=== PATIENT | male | born 1970 | race Caucasian/White ===

== ENCOUNTER 2019-09-04 09:34 | Outpatient (CLI) | payer BC | END 2019-09-04 09:35 | disposition home or self-care (01) | LOC: COV 09:34 | PROVIDERS: ATTEND Family Medicine | DX: R05 Cough (principal); R06.02 Shortness of breath; R53.83 Other fatigue; R19.7 Diarrhea, unspecified; Z20.828 Contact with and (suspected) exposure to other viral communicable diseases ==

== ENCOUNTER 2020-07-28 22:24 | Emergency (ER) | payer BC, OTHER ==
[2020-07-28 22:40] VITALS: BP 117/72
--- OUTSIDE RECORDS SUMMARY | 2020-07-28 22:48 | EXTERNAL MEDICAL SUMMARY RPT | Continuity of Care Document ---
:1970 Demographics Phone Unavailable Preferred Language Unknown Marital Status Unknown Church Affiliation Unknown Race Unknown Ethnic Group Unknown Author Organization [facility] Address [address] [place] [address] Phone Allergies Encounters Medications Problems Results
--- NOTE | 2020-07-29 00:54 | ED Physician Documentation ---
History of Present Illness - Stated complaint Stated Complaint: SHIVERING,MUSCLE STIFFNESS - Chief complaint Chief Complaint: General - History obtained from History obtained from: Patient - History of Present Illness Timing: Enter time (1999), Today - Additonal information Additional information: 49-year-old male states that he was well earlier in the day and he developed sudden shaking chills which lasted about 1/2-hour. He had bad enough shaking chills that he started up to the hospital and the shaking chills stopped part way up to the hospital. He comes into the emergency department now feeling weak. He does not have any other specific symptoms he denies any cough he denies any abdominal pain he denies any swelling to his skin or joints denies any red areas denies any difficulty with urination, rectal pain, scrotal pain, headache, ear pain, sore throat, sinus pressure or cough. He is immunized against COVID and got his last shot one month ago. He did have some diarrhea similar to what he has had previously and frequently. Review of Systems Constitutional: reports: Chills, Myalgias. denies: Fever Eyes: denies: Decreased vision Ears: denies: Ear pain Nose: denies: Rhinorrhea / runny nose, Congestion Throat: denies: Sore throat Cardiac: denies: Chest pain / pressure, Palpitations Respiratory: denies: Dyspnea, Cough GI: reports: Diarrhea. denies: Abdominal Pain, Nausea, Vomiting, Constipation : denies: Dysuria, Frequency Skin: denies: Rash Musculoskeletal: denies: Neck pain, Back pain, Extremity pain Neurologic: denies: Generalized weakness, Focal weakness, Numbness PD PAST MEDICAL HISTORY - Past Medical History Past Medical History: No - Past Surgical History Past Surgical History: No - Present Medications Home Medications: Ambulatory Orders Medication Instructions Recorded Confirmed No Known Home Medications 07/28/20 07/28/20 - Allergies Allergies/Adverse Reactions: Allergies Allergy/AdvReac Type Severity Reaction Status Date / Time No Known Drug Allergies Allergy Verified 07/28/20 22:37 - Social History Does the pt smoke?: No Smoking Status: Never smoker Does the pt drink ETOH?: No Does the pt have substance abuse?: No - Immunizations Immunizations are current?: Yes - POLST Patient has POLST: No PD ED PE NORMAL - Vitals Vital signs reviewed: Yes (tachy ) - General General: Alert and oriented X 3, No acute distress, Well developed/nourished - HEENT HEENT: Atraumatic, PERRL, EOMI, Ears normal, Pharynx benign - Neck Neck: Supple, no meningeal sign, No bony TTP - Cardiac Cardiac: RRR, No murmur - Respiratory Respiratory: No respiratory distress, Clear bilaterally - Abdomen Abdomen: Normal bowel sounds, Soft, Non tender, Non distended, No organomegaly - Back Back: No CVA TTP, No spinal TTP - Derm Derm: Normal color, Warm and dry, No rash - Extremities Extremities: No deformity, No edema - Neuro Neuro: Alert and oriented X 3, fuse maker 2-12 intact, No motor deficit, No sensory deficit, Normal speech Eye Opening: Spontaneous Motor: Obeys Commands Verbal: Oriented GCS Score: 15 - Psych Psych: Normal mood, Normal affect Results - Vitals Vitals: Vital Signs - 24 hr 07/28/20 22:34 Temperature 37 C Heart Rate 116 H Respiratory 16 Rate Blood Pressure 117/72 O2 Saturation 96 Oxygen O2 Source Room air - Labs Labs: Laboratory Tests 07/29/20 07/29/20 07/29/20 00:20 00:20 00:20 WBC 4.9 RBC 4.52 L Hgb 13.8 L Hct 41.4 L MCV 91.6 MCH 30.5 MCHC 33.3 RDW 12.3 Plt Count 170 MPV 9.2 Neut # (Auto) Not Reportable Lymph # (Auto) Not Reportable [place] # (Auto) Not Reportable Eos # (Auto) Not Reportable Baso # (Auto) Not Reportable Absolute Nucleated RBC Not Reportable Total Counted 100 Band Neuts % (Manual) 6 Abnorm Lymph % (Manual) 0 Nucleated RBC % Not Reportable Neutrophils # (Manual) 4.5 Lymphocytes # (Manual) 0.3 L Monocytes # (Manual) 0.0 Eosinophils # (Manual) 0.0 Basophils # (Manual) 0.0 Differential Comment MANUAL DIFFERENTIAL Platelet Estimate NORMAL (130-450,000) Platelet Morphology NORMAL APPEARANCE RBC Morph Micro Appear NORMAL APPEARANCE Sodium 139 Potassium 3.9 Chloride 103 Carbon Dioxide 24 Anion Gap 12.0 BUN 23 H Creatinine 1.3 H Estimated GFR (MDRD) 59 L Glucose 87 Lactic Acid 1.8 Calcium 9.7 Total Bilirubin 1.1 H AST 25 ALT 17 Alkaline Phosphatase 63 Total Protein 8.0 Albumin 4.7 Globulin 3.3 Albumin/Globulin Ratio 1.4 Lipase 38 - Rads (name of study) chest Radiology: Prelim report reviewed (Impression: 1. The bilateral lungs are hyperexpanded without focal infiltrate. 2. Leftward scoliotic curvature of the superior aspect of the thoracic spine.), EMP read indepedently, See rad report PD MEDICAL DECISION MAKING - ED course Complexity details: reviewed results, re-evaluated patient, considered differential, d/w patient ED course: 49-year-old male with shaking chills lasting 1/2-hour has no focal findings on examination he does have some muscle aches after this has occurred and we have drawn blood cultures which are pending. His chest x-ray and urinalysis are unremarkable as are his blood work. He has had similar reaction previously with his Covid shot he is out 1 month from his last Covid shot and this seems unlikely to be related. Departure - Departure Disposition: 01 Home, Self Care Clinical Impression: Shaking chills Condition: Stable Follow-Up: [facility] [Provider Group]
[2020-07-29 04:14] LABS: BASOPHILS % (AUTO) 0.2 %; EOSINOPHILS % (AUTO) 0.2 %; HCT - HEMATOCRIT 41.4 % (42.0-52.0); HGB - HEMOGLOBIN 13.8 g/dL (14.0-18.0); LYMPHOCYTES % (AUTO) 7.8 %; MEAN CORPUSCULAR HEMOGLOBIN 30.5 pg (27.0-31.0); MEAN CORPUSCULAR HGB CONC 33.3 g/dL (32.0-36.0); MEAN CORPUSCULAR VOLUME 91.6 fL (80.0-94.0); MEAN PLATELET VOLUME 9.2 fL (7.4-11.4); MONOCYTES % (AUTO) 0.4 %; NEUTROPHILS % (AUTO) 91.2 %; PLT - PLATELET COUNT 170 10^3/uL (130-450); RED BLOOD COUNT 4.52 10^6/uL (4.70-6.10); RED CELL DISTRIBUTION WIDTH 12.3 % (12.0-15.0); WHITE BLOOD COUNT 4.9 x10^3/uL (4.8-10.8)
[2020-07-29 04:15] LABS: ABNORMAL LYMPHS % (MANUAL) 0 %
[2020-07-29 04:17] LABS: BAND NEUTROPHILS % (MANUAL) 6 %; LYMPHOCYTES # (MANUAL) 0.3 10^3/uL (1.5-3.5); LYMPHOCYTES % (MANUAL) 7 %; NEUTROPHILS # (MANUAL) 4.5 10^3/uL (1.5-6.6); PLATELET ESTIMATE, MANUAL NORMAL (130-450,000) (NORMAL); PLATELET MORPHOLOGY NORMAL APPEARANCE (NORMAL); RBC MORPHOLOGY (MULTIPLE) NORMAL APPEARANCE (NORMAL)
[2020-07-29 04:18] LABS: ALBUMIN 4.7 g/dL (3.2-5.5); ALBUMIN/GLOBULIN RATIO 1.4 (1.0-2.2); BILIRUBIN,TOTAL 1.1 mg/dL (0.2-1.0); CALCIUM 9.7 mg/dL (8.5-10.3); CREATININE 1.3 mg/dL (0.6-1.2); DIFFERENTIAL COMMENT MANUAL DIFFERENTIAL; POTASSIUM 3.9 mmol/L (3.5-5.0)
[2020-07-29 04:33] LABS: BILIRUBIN,URINE NEGATIVE (NEGATIVE); CLARITY,URINE CLEAR (CLEAR); GLUCOSE, URINE (UA) NEGATIVE (NEGATIVE); KETONES,URINE (UA) NEGATIVE (NEGATIVE); LEUKOCYTE ESTERASE, URINE NEGATIVE (NEGATIVE); NITRITE,URINE NEGATIVE (NEGATIVE); OCCULT BLOOD,URINE NEGATIVE (NEGATIVE); PH,URINE 5.5 PH (5.0-7.5); PROTEIN,URINE NEGATIVE (NEGATIVE); UROBILINOGEN,URINE 0.2 (NORMAL) E.U./dL (NORMAL)
--- NOTE | 2020-07-29 08:11 | XRAY Report ---
PROCEDURE: Chest 2 View X-Ray INDICATIONS: shaking chills TECHNIQUE: 2 view(s) of the chest. COMPARISON: None. FINDINGS: Surgical changes and devices: None. Lungs and pleura: Hyperinflation consistent with COPD. No pleural effusions or pneumothorax. Lungs are clear. Mediastinum: Mediastinal contours are normal. Heart size is normal. Bones and chest wall: Mild scoliosis upper thoracic spine. No suspicious bony abnormalities. Soft t issues appear unremarkable. IMPRESSION: Hyperinflation suggesting COPD. No acute abnormality. No significant discrepancy with the preliminary interpretation. Reviewed by: Jun Perkins MD on 07/29/2020 8:09 AM PDT Approved by: Jun Perkins MD on 07/29/2020 8:09 AM PDT Station ID: [id number]
== END 2020-07-29 04:18 | disposition home or self-care (01) ==
LOC: ED 22:24
DX: R68.83 Chills (without fever) (principal); R53.1 Weakness; M79.10 Myalgia, unspecified site; Z20.822 Contact with and (suspected) exposure to COVID-19
CPT/HCPCS: 36415; 80053; 81001; 81003; 83605; 83690; 85025; 87040; 87086; 87150; 87181; 99282; 99284

== ENCOUNTER 2020-07-30 08:34 | Inpatient (IN) | payer OTHER ==
[2020-07-30] MEDS ORDERED: cefTRIAXone 1 GM VIAL IVP STA (09:23)
[2020-07-30] MEDS ORDERED: SODIUM CHLORIDE 0.9% 1,000 ML IV STA (09:23)
[2020-07-30 09:33] LABS: BASOPHILS % (AUTO) 0.5 %; EOSINOPHILS # (AUTO) 0.1 10^3/uL (0.0-0.7); EOSINOPHILS % (AUTO) 0.6 %; HGB - HEMOGLOBIN 13.5 g/dL (14.0-18.0); LYMPHOCYTES # (AUTO) 0.4 10^3/uL (1.5-3.5); LYMPHOCYTES % (AUTO) 5.1 %; MEAN CORPUSCULAR HEMOGLOBIN 30.9 pg (27.0-31.0); MEAN CORPUSCULAR HGB CONC 33.8 g/dL (32.0-36.0); MEAN CORPUSCULAR VOLUME 91.5 fL (80.0-94.0); MEAN PLATELET VOLUME 9.3 fL (7.4-11.4); MONOCYTES # (AUTO) 0.5 10^3/uL (0.0-1.0); MONOCYTES % (AUTO) 6.1 %; NEUTROPHILS # (AUTO) 7.4 10^3/uL (1.5-6.6); NEUTROPHILS % (AUTO) 87.3 %; PLT - PLATELET COUNT 153 10^3/uL (130-450); RED BLOOD COUNT 4.37 10^6/uL (4.70-6.10); RED CELL DISTRIBUTION WIDTH 12.5 % (12.0-15.0); WHITE BLOOD COUNT 8.5 x10^3/uL (4.8-10.8)
[2020-07-30] MEDS ORDERED: IOVERSOL 320 100 ML VIAL IVP ONE ×2 (09:37→10:38)
--- NOTE | 2020-07-30 11:50 | CT Report ---
PROCEDURE: Abdomen/Pelvis W INDICATIONS: fever 2 days ago/ diarrhea CONTRAST: IV CONTRAST: Optiray 320 ml: 100 PO CONTRAST: *NO PO CONTRAST TECHNIQUE: After the administration of IV contrast, 5 mm thick sections acquired from the diaphragms to the symp hysis. 5 mm thick coronal and sagittal reformats were acquired. For radiation dose reduction, the f ollowing was used: automated exposure control, adjustment of mA and/or kV according to patient size. COMPARISON: None. FINDINGS: Image quality: Excellent. ABDOMEN: Lung bases: Lung bases are clear. Heart size is normal. Solid organs: Liver is mildly enlarged with steatosis. The spleen is prominent. No focal lesions. Gallbladder is contracted and grossly unremarkable Biliary system is non dilated. Pancreas enhances normally. No adrenal nodules. Kidneys demonstrate normal size and enhancement, without hydronephro sis. Peritoneum and bowel: Bowel loops demonstrate normal wall thickness and caliber. No free fluid or a ir. Minimal scattered diverticula are noted. Nodes and vessels: No retroperitoneal or mesenteric adenopathy by size criteria. Aorta and inferior vena cava are normal in size. Miscellaneous: No ventral hernias. PELVIS: Genitourinary: Bladder wall thickness is normal. Miscellaneous: No inguinal hernias or adenopathy. Bones: No suspicious bony lesions. No vertebral body compression fractures. IMPRESSION: 1. Minimal diverticulosis. 2. No acute intra-abdominal or pelvic process identified. Reviewed by: Angy Soto MD on 07/30/2020 11:49 AM PDT Approved by: Angy Soto MD on 07/30/2020 11:49 AM PDT Station ID: [id number]
--- NOTE | 2020-07-30 12:17 | ED Physician Documentation ---
PD HPI NVD - Stated complaint Stated Complaint: IV ANTIBIOTICS - Chief complaint Chief Complaint: General - History obtained from History obtained from: Patient - History of Present Illness Timing - onset: How many days ago (2) Timing - duration: Days (onset Tuesday evening of fevers/chills/rigors with nausea and some abd cramping. Had loose stool couple of times. Seen in ER with labs and CXR, UA that were okay. Blood cultures done. He states feeling improved today. No further fever. Blood culture grew e. coli though. Called to come back to ER.) Timing - details: Abrupt onset. No: Still present (improved well the past day, but still some malaise, mild nausea.) Associated symptoms: Fever, Abdominal pain (crampy with some loose stool). No: Near syncope / syncope, Loss of appetite Contributing factors: No: Sick contact, Bad food, Recent antibiotics Similar symptoms before: Has not had sx before Recently seen: Emergency Dept (1 1/2 days ago) Review of Systems Constitutional: reports: Fever (1 1/2 days ago), Chills, Myalgias Nose: denies: Rhinorrhea / runny nose, Congestion Throat: denies: Sore throat Respiratory: denies: Cough GI: reports: Nausea, Diarrhea (loose stool for evening). denies: Vomiting : denies: Dysuria, Frequency Skin: denies: Rash, Lesions Musculoskeletal: denies: Neck pain, Back pain Neurologic: denies: Headache PD PAST MEDICAL HISTORY - Past Medical History Cardiovascular: None Respiratory: None GI: None : None - Past Surgical History Past Surgical History: No - Present Medications Home Medications: Ambulatory Orders Medication Instructions Recorded Confirmed Albuterol Sulfate [Proair Hfa 1 - 2 puffs INH Q4H PRN 07/30/20 07/30/20 Inhaler] Magnesium Oxide [Mag Ox] 400 mg PO DAILY 07/30/20 07/30/20 [place]-3/Dha/Epa/Fish Oil [Fish Oil 1 cap PO DAILY 07/30/20 07/30/20 1,000 mg Softgel] Vitamin B Complex 1 tab PO DAILY 07/30/20 07/30/20 - Allergies Allergies/Adverse Reactions: Allergies Allergy/AdvReac Type Severity Reaction Status Date / Time No Known Drug Allergies Allergy Verified 07/30/20 08:47 - Social History Does the pt smoke?: No Smoking Status: Never smoker Does the pt drink ETOH?: No Does the pt have substance abuse?: No - Immunizations Immunizations are current?: Yes - POLST Patient has POLST: No PD ED PE NORMAL - Vitals Vital signs reviewed: Yes - General General: Alert and oriented X 3, No acute distress, Well developed/nourished - HEENT HEENT: Moist mucous membranes, Pharynx benign - Neck Neck: Supple, no meningeal sign, No adenopathy - Cardiac Cardiac: RRR, No murmur - Respiratory Respiratory: Clear bilaterally - Abdomen Abdomen: Normal bowel sounds, Soft, Non tender, Non distended - Male Male : Deferred - Rectal Rectal: Deferred - Back Back: No CVA TTP - Derm Derm: Normal color, Warm and dry, No rash - Neuro Neuro: Alert and oriented X 3, No motor deficit, Normal speech Results - Vitals Vitals: Vital Signs - 24 hr 07/30/20 07/30/20 07/30/20 08:40 10:47 12:00 Temperature 36.4 C L Heart Rate 70 65 52 L Respiratory 14 18 18 Rate Blood Pressure 110/66 116/73 98/69 O2 Saturation 98 99 100 Oxygen O2 Source Room air - Labs Labs: Laboratory Tests 07/30/20 07/30/20 07/30/20 09:25 09:25 09:25 WBC 8.5 RBC 4.37 L Hgb 13.5 L Hct 40.0 L MCV 91.5 MCH 30.9 MCHC 33.8 RDW 12.5 Plt Count 153 MPV 9.3 Neut # (Auto) 7.4 H Lymph # (Auto) 0.4 L [place] # (Auto) 0.5 Eos # (Auto) 0.1 Baso # (Auto) 0.0 Absolute Nucleated RBC 0.00 Nucleated RBC % 0.0 Lactic Acid 1.4 C-Reactive Protein 14.0 H - Rads (name of study) abd CT Radiology: Prelim report reviewed (some diverticula, no noted acute infection/diverticulitis), See rad report PD MEDICAL DECISION MAKING - ED course Complexity details: reviewed results (CT without obvious infection. Had prior labs yesterday for chemistry, UA, CXR, COVID that were negative so did not repeat those. ), considered differential (concern for bacteremia. He is feeling better but I discussed the concern for bacteria seeding capillary beds and causing abscesses/ etc. Need IV abx to ensure all cleared from system. Also to eval for source, since he had some loose stool/cramps 1 1/2 days ago, I got CT, since UA was normal.), d/w patient, d/w application development consultant Departure - Departure Disposition: ED Place in Observation Clinical Impression: Bacteremia due to Escherichia coli, Diverticula, colon Condition: Stable Record reviewed to determine appropriate education?: Yes Discharge Date/Time: 07/30/20 13:07
[2020-07-30] MEDS ORDERED: ONDANSETRON 4 MG/2 ML VIAL IVP PRN (12:21)
[2020-07-30] MEDS ORDERED: ZOLPIDEM 5 MG TABLET PO PRN (12:21)
[2020-07-30] MEDS ORDERED: SODIUM CHLORIDE FLUSH 0.9% 10 ML SYRINGE IVP PRN (12:21)
[2020-07-30] MEDS ORDERED: D5NS W/20 MEQ KCL 1,000 ML IV SCH (13:00)
[2020-07-30] MEDS ORDERED: NON FORMULARY MED (Albuterol Sulfate [Proair Hfa Inhaler] 8.5 GM Hfa.Aer.Ad) INH PRN (15:26)
--- NOTE | 2020-07-30 15:26 | HISTORY & PHYSICAL EXAMINATION ---
Chief Complaint - Chief Complaint Chief Complaint: Called back to Hospital due to pos blood culture History of Present Illness - Admitted From Admitted From:: ED - History Obtained From History obtained from: ED provider and the patient - History of Present Illness HPI Comment/Other: This is a 49-year-old WM with a history only of asthma for which he takes inhalers only as needed. He also has intermittent diarrhea and noticed that it is after eating pasta or corn syrup. He has eliminated those from his diet but sometimes eats gluten-containing bread only. Patient has never seen a Risk And Compliance Analytics Director and has had this type of diarrhea pattern for over a decade. Three days ago he had an episode of diarrhea and thought it was his usual pattern. That night he started to develop shaking chills that were so bad he could not hold his cell phone. He was brought to the ER by a neighbor and had labs and blood cultures done, no imaging was done and was discharged home. Blood cultures done from that ER visit turned positive this morning and he was called to come back to the ER. He states that there was 1 more day of feeling bad with weakness, myalgia, low-grade fever with chills and he had no appetite yesterday, but no further diarrhea. This morning he felt weak. Then after a normal breakfast and has felt fine today. In the ER today he had a lactic acid level done that was WNL. He had abdominal CT done that shows scattered diverticula but none have diverticulitis today. The patient is being admitted for IV antibiotics for an E. coli bacteremia, from a presumed GI source. History - Past Medical History Cardiovascular: reports: None Respiratory: reports: Asthma Neuro: reports: Migraines Endocrine/Autoimmune: reports: None GI: reports: Other (Diarrhea, gluten and corn syrup-intolerance) : reports: None Psych: reports: None Musculoskeletal: reports: None Derm: reports: None MRSA Hx?: No Other Past Medical History: seasonal allergies, irritable bowel - Past Surgical History Derm: reports: Skin cancer surgery - Family & Social History Family History: Mother: Alzheimer's Disease, Father: , Sister: Alive and Well (Also gets intermittent diarrhea) Living arrangement: At home Living Situation: Alone Social History Notes: He is a non-smoker, who never smoked, he drinks extremely rare alcohol, has no drug use history. He lives alone. 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 He was laid off in mid-2019 and has been reinstated to work to start August 14, 2020. - Substance History Use: Uses substance without health or social issues: NONE - POLST Patient has POLST: No Meds/Allgy - Home Medications Home Medications: Ambulatory Orders Medication Instructions Recorded Confirmed Albuterol Sulfate [Proair Hfa 1 - 2 puffs INH Q4H PRN 07/30/20 07/30/20 Inhaler] Magnesium Oxide [Mag Ox] 400 mg PO DAILY 07/30/20 07/30/20 [place]-3/Dha/Epa/Fish Oil [Fish Oil 1 cap PO DAILY 07/30/20 07/30/20 1,000 mg Softgel] Vitamin B Complex 1 tab PO DAILY 07/30/20 07/30/20 - Allergies Allergies/Adverse Reactions: Allergies Allergy/AdvReac Type Severity Reaction Status Date / Time No Known Drug Allergies Allergy Verified 07/30/20 08:47 Review of Systems - Constitutional Constitutional: reports: Fever, Chills, Malaise - Musculoskeletal Musculoskeletal: reports: Muscle pain - Integumentary Integumentary: reports: Other (For the last 2 days he describes hypersensitivity of his skin as if he was wearing "sand paper".) - All Other Systems All Other Systems: reports: Reviewed and negative Exam - Vital Signs Vital Signs: Vital Signs x48h Temp Pulse Pulse Resp BP BP Pulse Ox 07/30/20 13:10 36.8 C 60 17 91/54 L 100 07/30/20 12:59 37.1 C 62 18 102/77 100 07/30/20 12:00 52 L 18 98/69 100 07/30/20 10:47 65 18 116/73 99 07/30/20 08:40 36.4 C L 70 14 110/66 98 - Physical Exam General Appearance: positive: No acute distress, Alert Eyes Bilateral: positive: Normal inspection, EOMI ENT: positive: ENT inspection nml, No signs of dehydration Neck: positive: Nml inspection, No JVD Respiratory: positive: No respiratory distress, Breath sounds nml Cardiovascular: positive: Regular rate & rhythm, No murmur Abdomen: positive: Non-tender, Nml bowel sounds, No distention Skin: positive: No rash, Warm, Dry Extremities: positive: Non-tender, No pedal edema Neurologic/Psychiatric: positive: Oriented x3 (Non-focal) Conclusion/Plan - Problem List (1) Bacteremia due to Escherichia coli Conclusion/Plan: This bacteremia does not appear to be a contaminant since it is growing in 2 out of 2 culture bottles. The source is likely his GI tract since it parallels his GI symptoms with rigors, fevers and chills after diarrhea. We will begin empiric IV antibiotics using Rocephin for 48 hours and await the blood culture sensitivities, in order to tailor antibiotics orally. Will redraw blood cultures today and assure they are negative. Will give a day of IV fluids since there was diarrhea. He has had 2 days of normal WBCs, and a normal Lactic Acid today. We will check a CRP and if elevated will follow this. (2) Diverticula, colon Conclusion/Plan: A small perforation may have been the source however, clinically he is already improved, and by imaging of the abdomen, there is no diverticulitis at present. (3) Diarrhea Conclusion/Plan: He thought he has gluten-intolerance causing occasional diarrhea. Perhaps he has that on top of diverticular disease causing his diarrhea. We will order a milk-free diet, bland and low gluten diet. - Lab Results Fish Bones: 07/30/20 09:25
[2020-07-30] MEDS ORDERED: ALBUTEROL NEB 2.5 MG/3 ML INH PRN (15:29)
--- NOTE | 2020-07-30 15:38 | PHARMACY PROGRESS NOTE ---
- Best Possible Medication History Admit Date and Time: 07/30/20 1221 Processed by: Pharmacy Medication History completed: Yes Patient Interview: Completed (PATIENT REPORTS HE DOES NOT TAKE RX MEDICATIONS. HE TAKES OTCs INCLUDING VITAMIINS AND SUPPLEMENTS) As the person ultimately responsible for medication therapy, providers are able to order a medication from an existing home medication list in [facility] via the "Reconcile Routine" prior to Confirmation of that medication by support services tech. Such practice is discouraged except when the physician, in their clinical judgment, deems that a medical need exists for a medication without regard to previous use.
[2020-07-30] MEDS: SODIUM CHLORIDE FLUSH 0.9% 10 ML SYRINGE IVP SCH (17:16)
[2020-07-30] MEDS: ACETAMINOPHEN 325 MG TABLET PO PRN (21:09)
[2020-07-31] MEDS: SODIUM CHLORIDE FLUSH 0.9% 10 ML SYRINGE IVP SCH ×4 (00:24→23:19)
[2020-07-31] MEDS: cefTRIAXone 2 GM in SODIUM CHLORIDE 0.9% MINIBAG 100 ML IV SCH (08:49)
[2020-07-31] MEDS: SACCHAROMYCES BOULARDII 250 MG CAPSULE PO SCH ×2 (11:03→17:01)
--- NOTE | 2020-07-31 13:22 | PROVIDER PROGRESS NOTE ---
Assessment/Plan - Problem List (1) Bacteremia due to Escherichia coli Assessment/Plan: The positive blood culture from 3 days ago will have sensitivities available tomorrow morning at the earliest, per the Medical Clinic Manager. The blood cultures drawn yesterday are only at 24 hours, thus we need to await 24 more hours (total of 48 hours) until we know that the final results are negative for growth. The source is still presumed to be his GI tract since there was diarrhea that preceded this event and since diverticuli were found on imaging. Continue with IV Rocephin, empirically chosen. Plan is hopefully for discharge home tomorrow on oral antibiotics for several more days, choice will be based on sensitivity results (2) Diverticula, colon Assessment/Plan: As per findings on the CT abdomen imaging There were no areas of diverticulitis, abscess or other areas of concern (3) Diarrhea Assessment/Plan: Resolved. We will stop IV fluids Will allow his usual diet however bland, nonspicy and with no milk-containing products, to make digestion easier in the colon. - Current Meds Current Meds: Current Medications Generic Name Dose Route Start Last Admin Trade Name Freq PRN Reason Stop Dose Admin Acetaminophen 650 mg 07/30/20 12:21 07/30/20 21:09 Acetaminophen 325 Mg Tablet PO 650 mg Q4HR PRN Administration Pain or Fever > 38C (100.4F) Ceftriaxone Sodium 2 gm/ 100 mls @ 200 mls/hr 07/31/20 09:00 07/31/20 09:20 Sodium Chloride IV Infused DAILY LIZETH Infusion Saccharomyces Boulardii 250 mg 07/31/20 12:00 07/31/20 11:03 Saccharomyces Boulardii 250 Mg Capsule PO 250 mg BIDWM LIZETH Administration Sodium Chloride 10 ml 07/30/20 17:00 07/31/20 08:53 Sodium Chloride Flush 0.9% 10 Ml Syringe IVP 10 ml 0100,0900,1700 LIZETH Administration - Lab Result Fish Bone Diagrams: 07/30/20 09:25 - Additional Planning My Orders: My Active Orders 07/30/20 12:21 Activity Orders [RC] Q2HR IO [RC] IOSHIFT Initiate Bowel Care Protocol [RC] .protocol Initiate Line Care Protocol [RC] QSHIFT Initiate Personal Care Protoco [RC] .protocol Oxygen Therapy [RC] .PRN Vital Signs [RC] 0800,1600,0000 Acetaminophen [Tylenol] 650 mg PO Q4HR PRN Ondansetron Inj [Zofran Inj] 4 mg IVP Q6HR PRN Sodium Chloride Flush 0.9% [Normal Saline Flush 0.9%] 10 ml IVP PRN PRN Zolpidem [Ambien] 5 mg PO QPM PRN Code Status [OTHERS] Routine Condition of Patient [OTHERS] Routine DVT Prophylaxis [OTHERS] Routine 07/30/20 12:23 IV Insert [RC] .ONCE 07/30/20 12:24 HAYDEN Clemons [RC] QSHIFT 07/30/20 15:29 Albuterol 2.5 mg INH RTQ4H PRN 07/30/20 Dinner Gluten Free Diet [DIET] 07/30/20 17:00 Sodium Chloride Flush 0.9% [Normal Saline Flush 0.9%] 10 ml IVP 0100,0900,1700 07/31/20 09:00 cefTRIAXone [Rocephin] 2 gm Sodium Chloride 0.9% Minibag [Normal Saline 0.9% Minibag] 100 ml IV DAILY 07/31/20 12:00 Saccharomyces Boulardii [Florastor] 250 mg PO BIDWM Subjective - Subjective Patient Reports: No Complaints (Had a normal solid BM this morning) Objective Vital Signs: Vital Signs - 24 hr 07/30/20 07/31/20 07/31/20 16:00 00:14 08:00 Temperature 36.8 C 36.9 C 36.8 C Heart Rate [ 63 60 70 Brachial] Respiratory 20 21 17 Rate Blood Pressure 104/62 110/59 L 98/59 L [Left Brachial artery] O2 Saturation 100 96 99 Oxygen O2 Source Room air I&O (Last 24 Hrs): Intake and Output Totals x24h 07/29/20 07/30/20 07/31/20 23:59 23:59 23:59 Intake Total 1660 1580 Balance 1660 1580 General: Alert, Oriented x3 HEENT: PERRLA, EOMI, Mucous membr. moist/pink Neck: Supple, No JVD Neuro: Alert, Non Focal Cardiovascular: Regular rate, No murmurs Respiratory: No respiratory distress Abdomen: Normal bowel sounds, Soft Extremities: No clubbing, No edema, No tenderness/swelling - Results Results: Laboratory Results WBC 8.5 x10^3/uL (4.8-10.8) 07/30/20 09:25 RBC 4.37 10^6/uL (4.70-6.10) L 07/30/20 09:25 Hgb 13.5 g/dL (14.0-18.0) L 07/30/20 09:25 Hct 40.0 % (42.0-52.0) L 07/30/20 09:25 MCV 91.5 fL (80.0-94.0) 07/30/20 09:25 MCH 30.9 pg (27.0-31.0) 07/30/20 09:25 MCHC 33.8 g/dL (32.0-36.0) 07/30/20 09:25 RDW 12.5 % (12.0-15.0) 07/30/20 09:25 Plt Count 153 10^3/uL (130-450) 07/30/20 09:25 MPV 9.3 fL (7.4-11.4) 07/30/20 09:25 Neut # (Auto) 7.4 10^3/uL (1.5-6.6) H 07/30/20 09:25 Lymph # (Auto) 0.4 10^3/uL (1.5-3.5) L 07/30/20 09:25 [place] # (Auto) 0.5 10^3/uL (0.0-1.0) 07/30/20 09:25 Eos # (Auto) 0.1 10^3/uL (0.0-0.7) 07/30/20 09:25 Baso # (Auto) 0.0 10^3/uL (0.0-0.1) 07/30/20 09:25 Absolute Nucleated RBC 0.00 x10^3/uL 07/30/20 09:25 Nucleated RBC % 0.0 /100WBC 07/30/20 09:25 Lactic Acid 1.4 mmol/L (0.5-2.2) 07/30/20 09:25 C-Reactive Protein 14.0 mg/dL (0-1.0) H 07/30/20 09:25
[2020-07-31] MEDS: ACETAMINOPHEN 325 MG TABLET PO PRN ×2 (14:34→23:34)
[2020-08-01 07:29] VITALS: BP 103/57
[2020-08-01] MEDS: SACCHAROMYCES BOULARDII 250 MG CAPSULE PO SCH (08:21)
[2020-08-01] MEDS: SODIUM CHLORIDE FLUSH 0.9% 10 ML SYRINGE IVP SCH (08:22)
[2020-08-01] MEDS: cefTRIAXone 2 GM in SODIUM CHLORIDE 0.9% MINIBAG 100 ML IV SCH (08:22)
[2020-08-01] MEDS: ACETAMINOPHEN 325 MG TABLET PO PRN (08:23)
--- NOTE | 2020-08-01 08:31 | Discharge Plan ---
Discharge Plan Problem Reviewed?: Yes Disposition: Home, Self Care Condition: Stable Prescriptions: L. Acidophilus/L.bulgaricus [Lactobacillus Tablet] 1 each PO DAILY #4 tablet levoFLOXacin [Levaquin] 750 mg PO DAILY #12 tablet Diet: Regular Activity Restrictions: Activity as Tolerated Shower Restrictions: No Driving Restrictions: No Instruction Topics: Diverticulosis Diverticulitis Health Concerns: You were admitted with E. Coli bacteria in the bloodstream, picked up on the blood culture. The presumed source was diverticuli in the colon, that were seen on CT imaging of your abdomen. You received 2 days +1 additional day of IV antibiotic. You are being discharged to take 4 more days of oral antibiotics by using Levofloxacin. Several days of probiotics were also prescribed. The prescription was electronically sent to your pharmacy. You can resume al other pre-hospital medications that you took. If you have new or worsening symptoms, call your Primary Care Provider for advice, or come to the ER. You should get a PCP, by the way, since you have diverticulosis and asthma. Plan of Treatment: As above. Care Goals: Improvement in symptoms and stabilization are the goals. Assessment: The patient understands and is agreeable with the plan. No Smoking: If you smoke, Please STOP! Call for help.
--- NOTE | 2020-08-01 08:51 | DISCHARGE SUMMARY ---
Discharge Summary Admit Date: 07/30/20 Discharge Date: 08/01/20 Discharging Provider: Dr Nubia Jacobs Primary Care Provider: None Condition at Discharge: Stable Discharge Disposition: 01 Home, Self Care - HPI History of Present Illness: This is a 49-year-old WM with a history only of asthma for which he takes inhalers only as needed. He also has intermittent diarrhea and noticed that it is after eating pasta or corn syrup. He has eliminated those from his diet but sometimes eats gluten-containing bread only. Patient has never seen a Transit Manager and has had this type of diarrhea pattern for over a decade. Three days ago he had an episode of diarrhea and thought it was his usual pattern. That night he started to develop shaking chills that were so bad he could not hold his cell phone. He was brought to the ER by a neighbor and had labs and blood cultures done, no imaging was done and was discharged home. Blood cultures done from that ER visit turned positive this morning and he was called to come back to the ER. He states that there was 1 more day of feeling bad with weakness, myalgia, low-grade fever with chills and he had no appetite yesterday, but no further diarrhea. This morning he felt weak. Then after a normal breakfast and has felt fine today. In the ER today he had a lactic acid level done that was WNL. He had abdominal CT done that shows scattered diverticula but none have diverticulitis today. The patient is being admitted for IV antibiotics for an E. coli bacteremia, from a presumed GI source. - HOSPITAL COURSE Hospital Course: (1) Bacteremia due to Escherichia coli He was put on IV Rocephin, empirically chosen. The source was presumed to be his GI tract since there was diarrhea that preceded this event and since diverticuli were found on imaging. We redrew blood cultures that were neg, and the positive cultures that grew E coli, had sensitivites available on the day of discharge. He was discharged with prescription for several more days on oral antibiotic Levaquin, based on sensitivity results. (2) Diverticula, colon As per findings on the CT abdomen imaging. There were no areas of diverticulitis, abscess or other areas of concern (3) Diarrhea Resolved. He got 1 day of IV fluids. We advised a bland, nonspicy, no milk- containing diet, to make digestion easier in the colon. (4) Hx of asthma There was no current flare-up. He was kept on his prn inhalers. - ALLERGIES Allergies/Adverse Reactions: Allergies Allergy/AdvReac Type Severity Reaction Status Date / Time No Known Drug Allergies Allergy Verified 07/30/20 08:47 - MEDICATIONS Home Medications: Ambulatory Orders Medication Instructions Recorded Confirmed Albuterol Sulfate [Proair Hfa 1 - 2 puffs INH Q4H PRN 07/30/20 07/30/20 Inhaler] Magnesium Oxide [Mag Ox] 400 mg PO DAILY 07/30/20 07/30/20 Finley-3/Dha/Epa/Fish Oil [Fish Oil 1 cap PO DAILY 07/30/20 07/30/20 1,000 mg Softgel] Vitamin B Complex 1 tab PO DAILY 07/30/20 07/30/20 L. Acidophilus/L.bulgaricus 1 each PO DAILY #4 tablet 08/01/20 [Lactobacillus Tablet] levoFLOXacin [Levaquin] 750 mg PO DAILY #12 tablet 08/01/20 - PHYSICAL EXAM AT DISCHARGE General Appearance: positive: No acute distress, Alert Eyes Bilateral: positive: Normal inspection, EOMI ENT: positive: ENT inspection nml, No signs of dehydration Neck: positive: Nml inspection, No JVD Respiratory: positive: No respiratory distress, Breath sounds nml Cardiovascular: positive: Regular rate & rhythm, No murmur Abdomen: positive: Non-tender, Nml bowel sounds, No distention Skin: positive: No rash, Warm, Dry Extremities: positive: Non-tender, No pedal edema Neurologic/Psychiatric: positive: Oriented x3 (Non-focal ) - LABS Result Diagrams: 07/30/20 09:25 - DIAGNOSTIC IMAGING Diagnostic Imaging Results: Final report reviewed - FOLLOW UP Follow Up: He was given a list of providers on [facility] and advised to establish with a PCP. - TIME SPENT Time Spent in Discharge (Minutes): 30
[2020-08-01] MEDS ORDERED: OMEGA-3 ACID ETHYL ESTERS 1 GM CAPSULE PO SCH (09:00)
[2020-08-01] MEDS ORDERED: MAGNESIUM OXIDE 400 MG TABLET PO SCH (09:00)
[2020-08-01] MEDS ORDERED: NON FORMULARY MED (Vitamin B Complex [Vitamin B Complex] 1 EACH Tablet) PO SCH (09:00)
== END 2020-08-01 09:37 | disposition home or self-care (01) | DRG 372 ==
LOC: ED 08:34 → MS2 12:21
PROVIDERS: ADMIT Internal Medicine; ATTEND Internal Medicine
DX: A04.4 Other intestinal Escherichia coli infections (principal); R78.81 Bacteremia; K57.30 Diverticulosis of large intestine without perforation or abscess without bleeding; R19.7 Diarrhea, unspecified; J45.909 Unspecified asthma, uncomplicated
CPT/HCPCS: 36415; 74177; 83605; 85025; 86140; 87040; 96361; 96374; 99283; 99285; A9270; Q9967